=== PATIENT | male | born 1995 | race Caucasian/White ===

== ENCOUNTER 2023-03-25 09:25 | Emergency (ER) | payer OTHER, BC, SELFPAY ==
[2023-03-25 09:32] VITALS: BP 151/85; PULSE 88; RESP 15; TEMP 36.8; O2SAT 98; BMI 22.9
--- NOTE | 2023-03-25 09:53 | CT_ITS ---
The [address] [address] Patient Name: SUKHDEV PANDEY MRN: [id number] date: 1995 Sex: M Assigned Patient Location: ER Current Patient Location: ER Accession/Order Number: [id number] Exam Date: 03/25/2023 10:08 Report Date: 03/25/2023 10:29 At the request of: FAIZA ECHEVERRIA Procedure: CT head/brain wo con CT head/brain wo con, 03/25/2023 10:08 AM EDT INDICATION: Head injury, concussive symptoms COMPARISON: No prior head CT available for comparison at the time of this dictation. TECHNIQUE: Axial CT images of the brain from skull base to vertex, including portions of the face and sinuses, were obtained without contrast. Multiplanar reformatted images were generated and reviewed as needed. FINDINGS: No intracranial mass, hydrocephalus, midline shift or acute hemorrhage. No extra-axial collection. Prabhakar-white matter differentiation is preserved. The paranasal sinuses and mastoid air cells are clear. Orbits are within normal limits. No acute skull fracture. CT/CT head/brain wo con IMPRESSION: No acute intracranial infarct or hemorrhage. Electronically authenticated by: [employer] Date: 03/25/2023 10:29
--- NOTE | 2023-03-25 09:58 | ED_ITS ---
HPI - Head Injury General Chief complaint: Head Injury Stated complaint: HEAD INJURY/POSS. CONCUSSION Time Seen by Provider: 03/25/23 09:37 Source: patient Mode of arrival: walk-in Limitations: no limitations History of Present Illness HPI Narrative: while at work the patient got accidentally struck in the forehead by a large piece of thick sheet metal. he was dazed and suffered a flap cut to his forehead. He did not lose consciousness but he has concussive symptoms including haziness of thought, nausea, headache and photophobia. No neck or back pain. No pain to the cheeks, jaw or orbits. 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 Related Data Allergies Allergy/AdvReac Type Severity Reaction Status Date / Time No Known Drug Allergies Allergy Verified 03/25/23 09:39 Exam Narrative Exam Narrative: Nurses note and vital signs reviewed and patient is not hypoxic. afebrile General: The patient appears well and in no apparent distress. Patient is resting comfortably on cart. GCS = 15. Skin: Warm, dry, no pallor noted. Head: Flap laceration measuring 1cm to the forehead just left of center and above the left eyebrow. There is no foreign mterial within the wound. Tenderness to the forehead without swelling or ecchymosis. No bony step-off. remainder of the face and scalp normocephalic, atraumatic. No jaw or cheek tenderness. Neck: Supple, trachea mid-line. Full ROM and no cervical spinal tenderness. Eyes: PERRLA, EOMI ENT: TMs clear, no hemotympanum detected, no blood in posterior oropharynx. No oral or dental injury. Cardiovascular: Regular Rate and Rhythm Respiratory: Patient is in no distress, no accessory muscle use, lungs are c lear to auscultation, no wheezing, rales or rhonchi Chest Wall: no tenderness, no flail chest, contusion, abrasion, or signs of trauma. Back: No thoracic or lumbar tenderness to palpation. Musculoskeletal: no sign of long bone fracture. Moves all four extremities in all modalities with 5/5 strength. 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 Psychiatric: Cooperative Constitutional Vital Signs, click to edit/add: Last Vital Signs Temp 98.3 F 03/25/23 09:32 Pulse 88 08/13/23 09:32 Resp 15 03/25/23 09:32 BP 151/85 H 03/25/23 09:32 Pulse Ox 98 03/25/23 09:32 O2 Del Method Room Air 03/25/23 09:32 Course Vital Signs Vital signs: Vital Signs Temperature 98.3 F 03/25/23 09:32 Pulse Rate 88 03/25/23 09:32 Respiratory Rate 15 03/25/23 09:32 Blood Pressure 151/85 H 03/25/23 09:32 Pulse Oximetry 98 03/25/23 09:32 Oxygen Delivery Method Room Air 03/25/23 09:32 Temperature 98.3 F 03/25/23 09:32 Pulse Rate 88 03/25/23 09:32 Respiratory Rate 15 03/25/23 09:32 Blood Pressure 151/85 H 03/25/23 09:32 Pulse Oximetry 98 03/25/23 09:32 Oxygen Delivery Method Room Air 03/25/23 09:32 MDM - Head Injury MDM Narrative Medical decision making narrative: she sent for CT scanning of the brain due to his congestive symptoms and modality of injury. CT did not reveal any acute intracranial abnormalities or fracture. The patient's laceration was closed with four sterile sutures as detailed above. Patient was discharged home after receiving oral acetaminophen and oral Zofran in the emergency department. He was given referral information for occupational health follow-up as soon as possible. Imaging Data CT scan - head: Radiologist's impression: Patient Name: SUKHDEV PANDEY MRN: [id number] date: 1995 Sex: M Assigned Patient Location: ER Current Patient Location: ER Accession/Order Number: [id number] Exam Date: 03/25/2023 10:08 Report Date: 03/25/2023 10:29 At the request of: FAIZA ECHEVERRIA Procedure: CT head/brain wo con CT head/brain wo con, 03/25/2023 10:08 AM EDT INDICATION: Head injury, concussive symptoms COMPARISON: No prior head CT available for comparison at the time of this dictation. TECHNIQUE: Axial CT images of the brain from skull base to vertex, including portions of the face and sinuses, were obtained without contrast. Multiplanar reformatted images were generated and reviewed as needed. FINDINGS: No intracranial mass, hydrocephalus, midline shift or acute hemorrhage. No extra-axial collection. Prabhakar-white matter differentiation is preserved. The paranasal sinuses and mastoid air cells are clear. Orbits are within normal limits. No acute skull fracture. IMPRESSION: No acute intracranial infarct or hemorrhage. Electronically authenticated by: [employer] Date: 03/25/2023 10:29 Discharge Plan Discharge Chief Complaint: Head Injury Clinical Impression: Concussion without loss of consciousness, Closed head injury, Forehead laceration Patient Disposition: Home, Self-Care Time of Disposition Decision: 10:38 Instructions: Laceration (ED), Concussion (ED), Head Injury (ED) Additional Instructions: patie Patient to follow up with occupational health at [facility] - please give the patient phone number and scheduling info to be seen as soon as possible. Stand Alone Forms: Portal Instructions Procedures ED Laceration Laceration Laceration 1: Additional comments: Laceration repair: All of the procedure was done under sterile conditions. Wound cleansed with betadine and anesthetized with local injection of approximately 1.5mL of lidocaine 1% with epinephrine. The wound was irrigated copiously with sterile normal saline. The wound was explored to depth and found to be free of foreign material. The laceration wound edges were well- approximated and did not require revision. Wound closed with 4 sterile 5-0 ethilon sutures in simple interrupted fashion. Patient tolerated the procedure well. The patient was neurovascularly intact post-repair. Topical bacitracin applied to the laceration and it was dressed with a dry sterile dressing. The patient will need to follow-up in the next 7-10 days for removal.
[2023-03-25] MEDS: ACETAMINOPHEN 500 MG TABLET 1000 MG PO (10:04)
[2023-03-25] MEDS: ONDANSETRON 4 MG RAPDIS TABLET SL (10:04)
[2023-03-25] MEDS: LIDOCAINE HCL 1%-EPINEPHRINE 1:100,000 10 ML MDV INJ (10:05)
== END 2023-03-25 11:01 | disposition home or self-care (01) ==
PROVIDERS: Emergency Provider Emergency Medicine
DX: S01.81XA Laceration without foreign body of other part of head, initial encounter (principal); S06.0X0A Concussion without loss of consciousness, initial encounter; S09.8XXA Other specified injuries of head, initial encounter; W22.8XXA Striking against or struck by other objects, initial encounter
CPT/HCPCS: 12011; 70450; 99284

== ENCOUNTER 2023-04-01 12:29 | Emergency (ER) | payer OTHER, SELFPAY ==
[2023-04-01 12:37] VITALS: BP 128/81; PULSE 81; RESP 16; TEMP 36.6; O2SAT 100; BMI 22.2
--- NOTE | 2023-04-01 12:44 | ED.WOUNDLAC1 ---
HPI - Wound/Laceration General Stated Complaint: REMOVE SURTURES Time Seen by Provider: 04/01/23 12:34 Source: patient Mode of arrival: walk-in Limitations: no limitations History of Present Illness HPI narrative: I saw the patient one week ago in the ED. He had a work-related injury to the head and forehead laceration which I sutured. He said he tried to schedule with [facility] at [facility] but they told me that the provider was out of the office for 10 days and couldn't see me . He also tried to go to [facility] but was told he had to come to [place] since the initial claim was started here. He asks that his wound be checked and the sutures removed. He no longer has headache and all of his concussive symptoms have resolved. He said that the wound is non-tender and the sutures have remained intact. Related Data Allergies Allergy/AdvReac Type Severity Reaction Status Date / Time No Known Drug Allergies Allergy Verified 04/01/23 12:42 Exam Narrative Exam Narrative: Nurses notes and vital signs reviewed and patient is not hypoxic. afebrile General: Well-appearing and in no apparent distress. Skin: Warm, dry, no pallor noted. No rash. Head: Normocephalic, atraumatic. No erythema, warmth or tenderness to the suture repair site. Eye: Pupils are equal, round and EOMI. Cardiovascular: Normal peripheral perfusion Respiratory: No accessory muscle use or respiratory distress. Neurological: A&O x4. No cranial nerve dysfunction observed. No truncal ataxia. Moves all extremities. Sensation intact. Psychiatric: Cooperative and interactive. Normal mood and affect. Constitutional Vital Signs, click to edit/add: Last Vital Signs Temp 97.8 F 04/01/23 12:37 Pulse 81 04/01/23 12:37 Resp 16 04/01/23 12:37 BP 128/81 04/01/23 12:37 Pulse Ox 100 04/01/23 12:37 O2 Del Method Room Air 04/01/23 12:37 Course Vital Signs Vital signs: Vital Signs Temperature 97.8 F 04/01/23 12:37 Pulse Rate 81 04/01/23 12:37 Respiratory Rate 16 04/01/23 12:37 Blood Pressure 128/81 04/01/23 12:37 Pulse Oximetry 100 04/01/23 12:37 Oxygen Delivery Method Room Air 04/01/23 12:37 Temperature 97.8 F 04/01/23 12:37 Pulse Rate 81 04/01/23 12:37 Respiratory Rate 16 04/01/23 12:37 Blood Pressure 128/81 04/01/23 12:37 Pulse Oximetry 100 04/01/23 12:37 Oxygen Delivery Method Room Air 04/01/23 12:37 MDM - Wound/Laceration MDM Narrative Medical decision making narrative: sutures removed by me without difficulty. Wound without dehiscence, bleeding or sign of infection. Patient discharged home and isntructed to once again contact [facility] to ensure they can close out his case. Discharge Plan Discharge Chief Complaint: Wound/Laceration Clinical Impression: Encounter for wound re-check, Encounter for removal of sutures Patient Disposition: Home, Self-Care Time of Disposition Decision: 12:57 Instructions: Stitches Removal (ED) Stand Alone Forms: Portal Instructions Referrals: Physician,Non-Staff, MD [Primary Care Provider] - 1 week
== END 2023-04-01 13:07 | disposition home or self-care (01) ==
PROVIDERS: Emergency Provider Emergency Medicine
DX: S01.81XD Laceration without foreign body of other part of head, subsequent encounter (principal); X58.XXXD Exposure to other specified factors, subsequent encounter
CPT/HCPCS: 99281